=== PATIENT | male | born 1955 | race Caucasian/White ===

== ENCOUNTER → 2023-11-15 09:35 | Outpatient (REF) | payer MEDICARE, BC, SELFPAY | LOC: RAD 09:35 | PROVIDERS: ATTENDING PHYSICIAN Family Medicine | DX: M25.552 Pain in left hip (principal); M75.41 Impingement syndrome of right shoulder; M54.2 Cervicalgia | CPT/HCPCS: 72050; 73502 ==

== ENCOUNTER → 2024-01-29 08:13 | Outpatient (REF) | payer MEDICARE, BC, SELFPAY | LOC: RAD 08:13 | PROVIDERS: ATTENDING PHYSICIAN Family Medicine | DX: M54.2 Cervicalgia (principal); I77.1 Stricture of artery | CPT/HCPCS: 93880 ==

== ENCOUNTER → 2024-08-27 09:23 | Outpatient (REF) | payer MEDICARE, BC, SELFPAY | LOC: PAVMRI 09:23 | PROVIDERS: ATTENDING PHYSICIAN Physician Assistant Medical; FAMILY PHYSICIAN Family Medicine; REFERRING PHYSICIAN Specialist | DX: M25.511 Pain in right shoulder (principal) | CPT/HCPCS: 73221 ==